=== PATIENT | male | born 1960 | race Caucasian/White ===

== ENCOUNTER → 2019-01-07 | Outpatient (CLI) | payer OTHER ==
[2019-01-07 17:32] LABS: BASO % 0.5 % (0.0-1.0); EOS # 0.2 10^3/uL (0.0-0.50); EOS % 1.7 % (0.0-3.0); HEMATOCRIT 41.3 % (42.0-52.0); HEMOGLOBIN 13.9 g/dl (13.5-17.5); LYMPH # 0.9 10^3/uL (1.5-4.5); LYMPH % 10.8 % (24.0-44.0); MEAN CORPUSCULAR HEMOGLOBIN 32.3 pg (27.0-33.0); MEAN CORPUSCULAR HGB CONC 33.7 g/dl (32.0-36.5); MEAN CORPUSCULAR VOLUME 95.8 fl (80.0-96.0); MONO # 1.2 10^3/uL (0.0-0.8); MONO % 13.7 % (0.0-5.0); NEUTROPHILS % 69.7 % (36.0-66.0); PLATELET COUNT, AUTOMATED 226 10^3/uL (150-450); RED BLOOD COUNT 4.31 10^6/uL (4.30-6.10); WHITE BLOOD COUNT 8.6 10^3/uL (4.0-10.0)
[2019-01-07 17:57] LABS: ALBUMIN 2.7 GM/DL (3.2-5.2); ALT/SGPT 94 U/L (12-78); BILIRUBIN,TOTAL 0.6 MG/DL (0.2-1.0); BLOOD UREA NITROGEN 27 MG/DL (7-18); CALCIUM LEVEL 8.4 MG/DL (8.5-10.1); CARBON DIOXIDE LEVEL 33 MEQ/L (21-32); CHLORIDE LEVEL 108 MEQ/L (98-107); CREATININE FOR GFR 0.79 MG/DL (0.70-1.30); GLOMERULAR FILTRATION RATE > 60.0 (>56); GLUCOSE, FASTING 93 MG/DL (70-100); SODIUM LEVEL 144 MEQ/L (136-145); TOTAL PROTEIN 5.7 GM/DL (6.4-8.2)
== END ==
LOC: M LAB 17:06
PROVIDERS: ATTEND Physician Assistant
DX: J18.9 Pneumonia, unspecified organism (principal)

== ENCOUNTER → 2021-01-17 | Outpatient (CLI) | payer OTHER | LOC: M LABSMTC 09:25 | PROVIDERS: ATTEND Anesthesiology | DX: Z01.812 Encounter for preprocedural laboratory examination (principal); Z20.822 Contact with and (suspected) exposure to COVID-19 ==

== ENCOUNTER 2021-01-18 11:11 | Day surgery (SDC) | payer OTHER ==
[~2021-01-18] VITALS: Ht 186.1 cm; Wt 85.2 kg
[~2021-01-18 11:11] MED LIST: NS 1,000 ML IV ONE
[2021-01-18] MEDS ORDERED: LIDOCAINE 2% 100MG/5ML SDV (FOR ANES.) As Ordered ONE (12:49)
[2021-01-18] MEDS ORDERED: propofoL 200 MG/20 ML VIAL As Ordered ONE (12:49)
[2021-01-18] MEDS ORDERED: ePHEDrine SULFATE 25 MG/5 ML(5MG/ML) SYRINGE As Ordered ONE (13:15)
[2021-01-18 13:45] VITALS: BP 119/72
--- NOTE | 2021-01-18 13:45 | ROOR ---
Patient Name: Tyree Yoo Procedure Date: 01/18/2021 1:06 PM Date of : 1960 Age: 60 Room: [facility] Gender: Male Note Status: Finalized Procedure: Colonoscopy Indications: High risk colon cancer surveillance: Personal history of colonic polyps Providers: Naman Interiano Jr, MD Referring MD: ADDIE FLEMING DO Requesting Provider: Medicines: Propofol per Anesthesia Complications: No immediate complications. Procedure: Pre-Anesthesia Assessment: - Prior to the procedure, a History and Physical was performed, and patient medications and allergies were reviewed. The patient is competent. The risks and benefits of the procedure and the sedation options and risks were discussed with the patient. All questions were answered and informed consent was obtained. Patient identification and proposed procedure were verified by the physician and the nurse in the pre-procedure area and in the procedure room. Mental Status Examination: alert and oriented. Airway Examination: normal oropharyngeal airway and neck mobility. Respiratory Examination: clear to auscultation. CV Examination: normal. ASA Grade Assessment: II - A patient with mild systemic disease. After reviewing the risks and benefits, the patient was deemed in satisfactory condition to undergo the procedure. The anesthesia plan was to use moderate sedation / analgesia (conscious sedation). Immediately prior to administration of medications, the patient was re-assessed for adequacy to receive sedatives. The heart rate, respiratory rate, oxygen saturations, blood pressure, adequacy of pulmonary ventilation, and response to care were monitored throughout the procedure. The physical status of the patient was re-assessed after the procedure. The Colonoscope was introduced through the anus and advanced to the cecum, identified by appendiceal orifice and ileocecal valve. The colonoscopy was performed without difficulty. The patient tolerated the procedure well. The quality of the bowel preparation was adequate. Findings: Multiple small and large-mouthed diverticula were found in the sigmoid colon. Three sessile polyps were found in the recto-sigmoid colon, transverse colon and ascending colon. The polyps were small in size. These polyps were removed with a cold snare. Resection was complete, but the polyp tissue was only partially retrieved. The rectum, descending colon, transverse colon, cecum, appendiceal orifice and ileocecal valve appeared normal. Impression: - Diverticulosis in the sigmoid colon. - Three small polyps at the recto-sigmoid colon, in the transverse colon and in the ascending colon, removed with a cold snare. Complete resection. Partial retrieval. - The rectum, descending colon, transverse colon, cecum, appendiceal orifice and ileocecal valve are normal. Recommendation: - Discharge patient to home (ambulatory). - Repeat colonoscopy in 5 years for surveillance. Procedure Code(s): --- Professional --- 30836, Colonoscopy, flexible; with removal of tumor(s), polyp(s), or other lesion(s) by snare technique Diagnosis Code(s): --- Professional --- Z86.010, Personal history of colonic polyps K63.5, Polyp of colon K57.30, Diverticulosis of large intestine without perforation or abscess without bleeding CPT copyright 2019 [employer]. All rights reserved. The codes documented in this report are preliminary and upon cpc coder review may be revised to meet current compliance requirements. Naman Interiano MD Naman Interiano Jr, MD 01/18/2021 1:33:49 PM Electronically signed by Naman Interiano Jr, MD Number of Addenda: 0 Note Initiated On: 01/18/2021 1:06 PM Estimated Blood Loss: Estimated blood loss: none.
== END 2021-01-18 13:59 | disposition home or self-care (01) ==
LOC: M OPP 11:11
PROVIDERS: ATTEND Surgery
DX: Z12.11 Encounter for screening for malignant neoplasm of colon (principal); Z86.010 Personal history of colon polyps; D12.6 Benign neoplasm of colon, unspecified; K57.30 Diverticulosis of large intestine without perforation or abscess without bleeding

== ENCOUNTER 2022-08-12 09:53 | Emergency (ER) | payer OTHER ==
[~2022-08-12] VITALS: Ht 185.4 cm; Wt 85.5 kg
[2022-08-12] MEDS ORDERED: PANT40TA29 (10:07)
[2022-08-12] MEDS ORDERED: GI COCKTAIL 50ML BTL(HYOSCYAMINE/MAALOX/LIDOCAINE VISCOUS)(1:3:1) PO ONE (11:40)
[2022-08-12] MEDS ORDERED: CARA1TAB6 PO (13:07)
[2022-08-12] MEDS ORDERED: PANT40TA29 PO (13:07)
[2022-08-12 13:15] VITALS: BP 122/89
== END 2022-08-12 13:16 | disposition home or self-care (01) ==
LOC: M ED 09:53
DX: K27.9 Peptic ulcer, site unspecified, unspecified as acute or chronic, without hemorrhage or perforation (principal); K21.9 Gastro-esophageal reflux disease without esophagitis; R00.1 Bradycardia, unspecified

== ENCOUNTER 2023-10-03 11:45 | Observation (INO) | payer OTHER ==
[~2023-10-03] VITALS: Ht 185.4 cm; Wt 93.9 kg
[~2023-10-03 11:45] MED LIST changes: +CARA1TAB6 PO; -NS 1,000 ML IV ONE; +PANT40TA29; +PANT40TA29 PO
[2023-10-03] MEDS ORDERED: ISOVUE-370 76% 100ML VIAL As Ordered ONE (11:54)
[2023-10-03 12:07] LABS: BASO % 0.9 % (0.0-1.0); EOS # 0.1 10^3/uL (0.0-0.5); EOS % 2.8 % (0.0-3.0); HEMATOCRIT 48.1 % (42.0-52.0); HEMOGLOBIN 16.8 g/dl (13.5-17.5); LYMPH % 22.7 % (24.0-44.0); MEAN CORPUSCULAR HEMOGLOBIN 32.6 pg (27.0-33.0); MEAN CORPUSCULAR HGB CONC 34.9 g/dl (32.0-36.5); MEAN CORPUSCULAR VOLUME 93.4 fl (80.0-96.0); MONO # 0.4 10^3/uL (0.0-0.8); MONO % 10.1 % (2.0-8.0); NEUTROPHILS # 2.7 10^3/uL (1.5-8.5); NEUTROPHILS % 63.5 % (36.0-66.0); PLATELET COUNT, AUTOMATED 176 10^3/uL (150-450); RED BLOOD COUNT 5.15 10^6/uL (4.30-6.10); WHITE BLOOD COUNT 4.3 10^3/uL (4.0-10.0)
[2023-10-03 12:24] LABS: INR 0.98; PARTIAL THROMBOPLASTIN TIME 25.8 SECONDS (24.8-34.2); PROTHROMBIN TIME 12.7 SECONDS (12.5-14.5)
[2023-10-03 12:57] LABS: BLOOD UREA NITROGEN 20 MG/DL (9-23); CALCIUM LEVEL 9.4 MG/DL (8.3-10.6); CARBON DIOXIDE LEVEL 28 MMOL/L (20-31); CHLORIDE LEVEL 107 MMOL/L (98-107); CK-MB VALUE MASS 1.3 NG/ML (<3.6); CREATININE FOR GFR 0.99 MG/DL (0.70-1.30); GLOMERULAR FILTRATION RATE > 60.0 (>49); GLUCOSE, FASTING 96 MG/DL (74-106); SODIUM LEVEL 139 MMOL/L (136-145)
[2023-10-03] MEDS: NS 500 ML IV ONE (12:58)
[2023-10-03 12:59] LABS: THYROID STIMULATING HORMONE 2.353 uIU/ML (0.55-4.78)
[2023-10-03 13:00] LABS: FREE T4 1.09 NG/DL (0.89-1.76)
[2023-10-03 13:01] LABS: CPK CREATINE PHOSPHOKINASE 281 U/L (46-171); MB/CK RELATIVE INDEX 0.46 (< OR =4)
[2023-10-03] MEDS ORDERED: HOME MED LIST COMPLETE! XX SCH (13:10)
[2023-10-03] MEDS: CLOPIDOGREL 300 MG TAB (PLAVIX) PO STA (13:48)
[2023-10-03] MEDS: ASPIRIN 325 MG TAB PO ONE (13:48)
[2023-10-03 14:31] VITALS: BP 133/89; TEMP 97.3; O2SAT 96
[2023-10-03 14:38] LABS: HEMOGLOBIN A1c 4.8 % (4.0-6.0)
[2023-10-03 16:00] VITALS: BP 134/94; TEMP 97.4; O2SAT 95
[2023-10-03] MEDS: NS 1,000 ML IV ONE (16:16)
[2023-10-03] MEDS: ATORVASTATIN 20 MG TAB PO ONE (16:17)
[2023-10-03 17:56] VITALS: BP 131/85; TEMP 97.6; O2SAT 99
[2023-10-03] MEDS ORDERED: MECLIZINE 25 MG TABLET PO PRN (19:00)
[2023-10-03 19:55] VITALS: BP 117/76; TEMP 97.6; O2SAT 95
[2023-10-03 23:56] VITALS: BP 122/80; TEMP 97.5; O2SAT 92
[2023-10-04 03:46] VITALS: BP 114/75; TEMP 97.2; O2SAT 96
[2023-10-04 05:47] LABS: BASO % 0.7 % (0.0-1.0); EOS # 0.2 10^3/uL (0.0-0.5); EOS % 4.8 % (0.0-3.0); HEMATOCRIT 42.3 % (42.0-52.0); HEMOGLOBIN 15.1 g/dl (13.5-17.5); LYMPH # 1.2 10^3/uL (1.5-5.0); LYMPH % 28.8 % (24.0-44.0); MEAN CORPUSCULAR HEMOGLOBIN 32.6 pg (27.0-33.0); MEAN CORPUSCULAR HGB CONC 35.7 g/dl (32.0-36.5); MEAN CORPUSCULAR VOLUME 91.4 fl (80.0-96.0); MONO # 0.4 10^3/uL (0.0-0.8); MONO % 9.5 % (2.0-8.0); NEUTROPHILS # 2.4 10^3/uL (1.5-8.5); PLATELET COUNT, AUTOMATED 157 10^3/uL (150-450); RED BLOOD COUNT 4.63 10^6/uL (4.30-6.10); WHITE BLOOD COUNT 4.2 10^3/uL (4.0-10.0)
[2023-10-04 06:11] LABS: BLOOD UREA NITROGEN 15 MG/DL (9-23); CALCIUM LEVEL 8.2 MG/DL (8.3-10.6); CARBON DIOXIDE LEVEL 24 MMOL/L (20-31); CHLORIDE LEVEL 112 MMOL/L (98-107); CHOLESTEROL LEVEL 134 MG/DL (<200); CHOLESTEROL RISK RATIO 4.71 (<5); CREATININE FOR GFR 0.86 MG/DL (0.70-1.30); GLOMERULAR FILTRATION RATE > 60.0 (>49); GLUCOSE, FASTING 95 MG/DL (74-106); HDL CHOLESTEROL 28.4 MG/DL (>40); LDL CHOLESTEROL 77.2 MG/DL (<100); MAGNESIUM LEVEL 2.1 MG/DL (1.8-2.4); NON-HDL-C 105.6 MG/DL; POTASSIUM SERUM 4.4 MMOL/L (3.5-5.1); SODIUM LEVEL 143 MMOL/L (136-145); TRIGLYCERIDES LEVEL 142 MG/DL (<150)
[2023-10-04 07:55] VITALS: BP 126/78; TEMP 98.1; O2SAT 95
[2023-10-04] MEDS: ATORVASTATIN 20 MG TAB PO SCH (09:40)
[2023-10-04] MEDS: ENOXAPARIN 40MG/0.4ML SYRINGE (J1650 PER 10MG) SC SCH (09:40)
[2023-10-04] MEDS ORDERED: CLOP75TA2 PO (10:20)
[2023-10-04] MEDS ORDERED: MECL-136 PO (10:20)
[2023-10-04] MEDS ORDERED: ATOR40TA75 PO (10:20)
[2023-10-04] MEDS ORDERED: ASPI81TA26 PO (10:20)
[2023-10-04] MEDS: CLOPIDOGREL 75 MG TAB PO STA (11:09)
[2023-10-09 13:08] LABS: VITAMIN B1 LEVEL WHOLE BLOOD 119.2 nmol/L (66.5-200.0)
== END 2023-10-04 11:26 | disposition home or self-care (01) ==
LOC: EDBD 11:45 → M ED 11:45 → M ED INP 13:17 → M PCU 14:19
PROVIDERS: ADMIT Internal Medicine; ATTEND Internal Medicine
DX: R26.2 Difficulty in walking, not elsewhere classified (principal); R74.8 Abnormal levels of other serum enzymes; R00.1 Bradycardia, unspecified; R42 Dizziness and giddiness; W22.8XXA Striking against or struck by other objects, initial encounter; Y92.014 Private driveway to single-family (private) house as the place of occurrence of the external cause; Y93.89 Activity, other specified; Y99.8 Other external cause status; R29.700 NIHSS score 0; Z86.16 Personal history of COVID-19; Z82.49 Family history of ischemic heart disease and other diseases of the circulatory system; Z82.79 Family history of other congenital malformations, deformations and chromosomal abnormalities; Z82.3 Family history of stroke
CPT/HCPCS: 36415; 70450; 70496; 70498; 70544; 70551; 71045; 80047; 80048; 80061; 82525; 82550; 82553; 82607; 83036; 83735; 84425; 84439; 84443; 84484; 85025; 85610; 85730; 93005; 93041; 93306; 94760; 96360; 96361; 96372; 97161; 99285; J1650; Q9967

== ENCOUNTER 2024-09-18 16:04 | Observation (INO) | payer OTHER ==
[~2024-09-18] VITALS: Ht 188 cm; Wt 93.5 kg
[~2024-09-18 16:04] MED LIST changes: +ASPI81TA26 PO; +ATOR40TA75 PO; +CLOP75TA2 PO; +MECL-136 PO
[2024-09-18 17:06] LABS: BASO % 0.2 % (0.0-1.0); HEMATOCRIT 43.9 % (42.0-52.0); HEMOGLOBIN 15.6 g/dl (13.5-17.5); LYMPH # 0.8 10^3/uL (1.5-5.0); LYMPH % 4.6 % (24.0-44.0); MEAN CORPUSCULAR HEMOGLOBIN 31.9 pg (27.0-33.0); MEAN CORPUSCULAR HGB CONC 35.5 g/dl (32.0-36.5); MEAN CORPUSCULAR VOLUME 89.8 fl (80.0-96.0); MONO # 1.3 10^3/uL (0.0-0.8); MONO % 7.1 % (2.0-8.0); NEUTROPHILS # 15.6 10^3/uL (1.5-8.5); PLATELET COUNT, AUTOMATED 167 10^3/uL (150-450); RED BLOOD COUNT 4.89 10^6/uL (4.30-6.10); WHITE BLOOD COUNT 17.9 10^3/uL (4.0-10.0)
[2024-09-18 17:29] LABS: CK-MB VALUE MASS < 1.0 NG/ML (<3.6)
[2024-09-18 17:30] LABS: BLOOD UREA NITROGEN 24 MG/DL (9-23); CALCIUM LEVEL 8.5 MG/DL (8.3-10.6); CARBON DIOXIDE LEVEL 25 MMOL/L (20-31); CHLORIDE LEVEL 99 MMOL/L (98-107); CPK CREATINE PHOSPHOKINASE 84 U/L (46-171); CREATININE FOR GFR 1.32 MG/DL (0.70-1.30); GLOMERULAR FILTRATION RATE 60.2 (>49); GLUCOSE, FASTING 111 MG/DL (74-106); MB/CK RELATIVE INDEX 1.19 (< OR =4); POTASSIUM SERUM 3.6 MMOL/L (3.5-5.1); SODIUM LEVEL 135 MMOL/L (136-145)
[2024-09-18 18:34] LABS: CK-MB VALUE MASS < 1.0 NG/ML (<3.6)
[2024-09-18 18:37] LABS: CPK CREATINE PHOSPHOKINASE 71 U/L (46-171)
[2024-09-18] MEDS ORDERED: ISOVUE-370 76% 100ML VIAL As Ordered ONE (19:22)
[2024-09-18] MEDS: ONDANSETRON 4MG 2ML VIAL IV ONE (19:23)
[2024-09-18] MEDS: methylPREDNISolone 125MG 2ML VIAL IV ONE (19:23)
[2024-09-18] MEDS: NS (Normal Saline) 0.9% 1,000 ML IV ONE (19:23)
[2024-09-18 19:27] LABS: VENOUS BASE EXCESS 0.4 (-2.0-2.0); VENOUS HCO3 22.2 MMOL/L (23.0-27.0); VENOUS O2 SATURATION 97.3 % (60.0-80.0); VENOUS PARTIAL PRESSURE CO2 28.9 mmHg (38.0-50.0); VENOUS PARTIAL PRESSURE O2 89.8 mmHg (30.0-50.0); VENOUS PH 7.503 UNITS (7.330-7.430); VENOUS STANDARD HCO3 24.8 MMOL/L; VENOUS TOTAL CO2 23.1 MMOL/L (24.0-28.0)
[2024-09-18] MEDS: IPRATROPIUM 0.5MG/ALBUTEROL 2.5MG INH SOL UD 3ML NEB ONE ×2 (19:37→21:39)
[2024-09-18 19:55] LABS: CK-MB VALUE MASS < 1.0 NG/ML (<3.6)
[2024-09-18 20:01] LABS: CPK CREATINE PHOSPHOKINASE 69 U/L (46-171); MB/CK RELATIVE INDEX 1.44 (< OR =4)
[2024-09-18] MEDS: FAMOTIDINE 20MG/2ML VIAL IVP ONE (20:04)
[2024-09-18] MEDS: ACETAMINOPHEN *IV* 1,000 MG in IV 1 EA IV ONE (20:10)
[2024-09-18 21:13] LABS: CK-MB VALUE MASS < 1.0 NG/ML (<3.6)
[2024-09-18 21:16] LABS: CPK CREATINE PHOSPHOKINASE 65 U/L (46-171); MB/CK RELATIVE INDEX 1.53 (< OR =4)
[2024-09-18] MEDS: cefTRIAXone SOD 1 GM in DEXTROSE 5% (D5W) ADV/MINI-BAG 50 ML IV ONE (21:24)
[2024-09-18] MEDS: DOXYCYCLINE HYCLATE 100MG TABLET PO ONE (21:24)
[2024-09-18] MEDS ORDERED: ACETAMINOPHEN 325 MG TAB PO PRN (21:40)
[2024-09-18 22:42] VITALS: BP 112/70; TEMP 97.3; O2SAT 93
[2024-09-18] MEDS ORDERED: IBUP200C25 PO (22:43)
[2024-09-18] MEDS ORDERED: THERTAB52 PO (22:43)
[2024-09-18] MEDS ORDERED: HOME MED LIST COMPLETE! XX SCH (22:45)
[2024-09-18] MEDS ORDERED: ACETAMINOPHEN 500 MG TAB PO PRN (23:45)
[2024-09-18] MEDS ORDERED: IPRATROPIUM 0.5MG/ALBUTEROL 2.5MG INH SOL UD 3ML NEB PRN (23:45)
[2024-09-18] MEDS ORDERED: ONDANSETRON 4MG 2ML VIAL IV PRN (23:45)
[2024-09-19] MEDS: NS (Normal Saline) 0.9% 1,000 ML IV SCH (00:43)
[2024-09-19 04:45] VITALS: BP 110/68; TEMP 97; O2SAT 94
[2024-09-19 08:00] VITALS: BP 121/82; TEMP 97.9; O2SAT 93
[2024-09-19] MEDS: DOXYCYCLINE HYCLATE 100 MG in DEXTROSE 5% (D5W) MINI-BAG PLU 100 ML IV SCH (08:12)
[2024-09-19 12:00] VITALS: BP 124/83; TEMP 98.1; O2SAT 96
[2024-09-19 15:07] LABS: BASO % 0.1 % (0.0-1.0); HEMATOCRIT 43.9 % (42.0-52.0); HEMOGLOBIN 15.6 g/dl (13.5-17.5); LYMPH # 0.8 10^3/uL (1.5-5.0); LYMPH % 4.1 % (24.0-44.0); MEAN CORPUSCULAR HEMOGLOBIN 32.2 pg (27.0-33.0); MEAN CORPUSCULAR HGB CONC 35.5 g/dl (32.0-36.5); MEAN CORPUSCULAR VOLUME 90.5 fl (80.0-96.0); MONO # 0.7 10^3/uL (0.0-0.8); MONO % 3.8 % (2.0-8.0); NEUTROPHILS # 17.2 10^3/uL (1.5-8.5); NEUTROPHILS % 90.7 % (36.0-66.0); PLATELET COUNT, AUTOMATED 181 10^3/uL (150-450); RED BLOOD COUNT 4.85 10^6/uL (4.30-6.10)
[2024-09-19 15:22] LABS: ALBUMIN 3.1 G/DL (3.2-5.2); ALKALINE PHOSPHATASE 70 U/L (40-129); ALT/SGPT 23 U/L (7.0-40); AST/SGOT 17 U/L (<34); BLOOD UREA NITROGEN 22 MG/DL (9-23); CALCIUM LEVEL 8.8 MG/DL (8.3-10.6); CARBON DIOXIDE LEVEL 22 MMOL/L (20-31); CHLORIDE LEVEL 107 MMOL/L (98-107); CREATININE FOR GFR 0.88 MG/DL (0.70-1.30); GLOMERULAR FILTRATION RATE > 90.0 (>49); GLUCOSE, FASTING 143 MG/DL (74-106); POTASSIUM SERUM 3.9 MMOL/L (3.5-5.1); SODIUM LEVEL 141 MMOL/L (136-145)
[2024-09-19 16:00] VITALS: BP 122/81; TEMP 98.2; O2SAT 90
[2024-09-19] MEDS ORDERED: PROB250C PO (17:07)
[2024-09-19] MEDS ORDERED: LEVO1TAB40 PO (17:07)
[2024-09-19] MEDS ORDERED: LOPE2CAP PO ×2 (17:10→17:11)
[2024-09-19] MEDS: LevoFLOXacin 750 MG TABLET PO ONE (18:11)
[2024-09-19] MEDS ORDERED: cefTRIAXone SOD 1 GM in DEXTROSE 5% (D5W) ADV/MINI-BAG 50 ML IV SCH (20:00)
== END 2024-09-19 18:15 | disposition home or self-care (01) ==
LOC: M ED 16:04 → M ED INP 16:05 → M MSPAV 22:30
PROVIDERS: ADMIT Student in an Organized Health Care Education/Training Program; ATTEND Student in an Organized Health Care Education/Training Program
DX: N17.9 Acute kidney failure, unspecified (principal); J18.9 Pneumonia, unspecified organism; B97.4 Respiratory syncytial virus as the cause of diseases classified elsewhere; D72.829 Elevated white blood cell count, unspecified; R07.89 Other chest pain; I44.7 Left bundle-branch block, unspecified; K52.9 Noninfective gastroenteritis and colitis, unspecified; R11.2 Nausea with vomiting, unspecified; R63.8 Other symptoms and signs concerning food and fluid intake; R53.81 Other malaise; K21.9 Gastro-esophageal reflux disease without esophagitis; H81.10 Benign paroxysmal vertigo, unspecified ear; Z82.49 Family history of ischemic heart disease and other diseases of the circulatory system; Z79.899 Other long term (current) drug therapy
CPT/HCPCS: 36415; 71045; 71275; 80048; 80053; 82550; 82553; 82803; 83605; 84484; 85025; 87070; 87205; 87486; 87581; 87633; 87641; 87798; 93005; 94640; 96361; 96365; 96367; 96368; 96375; 99285; J0131; J0696; J1271; J1308; J2405; J2919; Q9967

== ENCOUNTER → 2025-02-01 | Outpatient (CLI) | payer OTHER ==
[~2025-02-01] MED LIST changes: +IBUP200C25 PO; +LEVO1TAB40 PO; +LOPE2CAP PO; +PROB250C PO; +THERTAB52 PO
== END ==
LOC: M CARPUL 07:09
PROVIDERS: ATTEND Internal Medicine Cardiovascular Disease
DX: R94.31 Abnormal electrocardiogram [ECG] [EKG] (principal)

== ENCOUNTER → 2025-03-28 | Outpatient (CLI) | payer OTHER | LOC: M PLAIMG 09:43 | PROVIDERS: ATTEND Internal Medicine Cardiovascular Disease | DX: R94.31 Abnormal electrocardiogram [ECG] [EKG] (principal); I44.7 Left bundle-branch block, unspecified ==